=== PATIENT | male | born 1970 | race American Indian/Alaskan Native ===

== ENCOUNTER 2016-11-26 02:07 | Emergency (ER) | payer MEDICARE ==
[2016-11-26] MEDS ORDERED: TYLENOL ONE (02:19)
[2016-11-26] MEDS ORDERED: TYLENOL PO ONE ×2 (02:27→02:45)
--- NOTE | 2016-11-26 05:00 | Ultrasound Report ---
FINAL REPORT PROCEDURE: US TESTICULAR DOPPLER COMP TECHNIQUE: Real-time batista-scale and color flow Doppler sonography in multiple planes of the scrotum, testicles, and epididymes was performed. Velocity spectral waveform analysis Doppler imaging of the arterial inflow and venous outflow of the testicles was performed with image documentation. CPT 73824 and 88168 HISTORY: left testicle pain COMPARISON: No prior studies are available for comparison. FINDINGS: RIGHT TESTICLE: Size: 3.8 x 1.6 x 1.9 cm . Appearance: Normal size and echotexture . Arterial blood flow: Normal spectral waveforms, flow velocities and color flow images.. Venous blood flow: Normal spectral waveforms and color flow images. Right epididymis: Normal size and echotexture . Hydrocele: Moderate. There is an extratesticular mass is measuring 5.3 x 2.3 x 2.1 centimeters suggesting inguinal hernia. LEFT TESTICLE Size: 3.8 x 2.1 x 2.7 cm . Appearance: Normal size and echotexture . Arterial blood flow: Normal spectral waveforms, flow velocities and color flow images.. Venous blood flow: Normal spectral waveforms and color flow images. Left epididymis: Normal size and echotexture . Hydrocele: Moderate. There is an extratesticular mass measuring 5.9 x 2.9 x 2.1 centimeters suggesting inguinal hernia. IMPRESSION: Suspected bilateral inguinal hernias containing bowel. CT recommended for further evaluation. Bilateral hydroceles. There is no testicular mass, orchitis or torsion.
[2016-11-26 05:10] LABS: Bilirubin,Urine NEG (Negative); Blood,Urine NEG (Negative); Ketones,Urine TR mg/dL (Negative); Leukocyte Esterase,Urine MOD (Negative); Mucus,Urine 3+ /HPF; Nitrite,Urine NEG (Negative); Protein,Urine <15 mg/dL mg/dL (Negative); Urobilinogen,Urine < 2.0 mg/dL (<2.0)
[2016-11-26 08:24] LABS: Basophils % (Auto) 0.3 % (0.0-1.8); Eosinophils % (Auto) 0.4 % (0.0-4.3); Hematocrit 42.5 % (35.5-45.6); Hemoglobin 14.2 gm/dl (11.8-15.2); Mean Corpuscular HGB Conc 33 % (32-34); Mean Corpuscular Hemoglobin 31 pg (28-32); Mean Corpuscular Volume 93 fl (84-94); Red Blood Count 4.57 M/mm3 (3.65-5.03); White Blood Count 11.4 K/mm3 (4.5-11.0)
[2016-11-26 08:27] LABS: Platelet Count 282 K/mm3 (140-440)
[2016-11-26 08:43] VITALS: BP 131/71
[2016-11-26] MEDS ORDERED: NACL ONE (08:43)
[2016-11-26 08:48] LABS: Alanine Aminotransferase 31 units/L (7-56); Albumin 3.6 g/dL (3.9-5); Albumin/Globulin Ratio 0.9 %; Alkaline Phosphatase 81 units/L (35-129); Anion Gap 19 mmol/L; BUN/Creatinine Ratio 18.75; Bilirubin,Total 0.5 mg/dL (0.1-1.2); Blood Urea Nitrogen 15 mg/dL (9-20); Calcium 9.3 mg/dL (8.4-10.2); Carbon Dioxide 26 mmol/L (22-30); Chloride 97.6 mmol/L (98-107); Glucose 103 mg/dL (75-100); Potassium 3.5 mmol/L (3.6-5.0); Sodium 139 mmol/L (137-145); Total Protein 7.8 g/dL (6.3-8.2)
--- NOTE | 2016-11-26 08:59 | Emergency Department Report ---
HPI - General Chief Complaint: Urogenital-Male Time Seen by Provider: 11/26/16 08:49 - HPI HPI: Chief complaint: Swollen testicles left greater than right HPI: Patient complains of swollen testicle 2 days to me and 5 days to the nursing staff. Patient has a history of urinary retention in the past and states he saw urologist José Miguel. Patient states she's never been told he had an inguinal hernia. Patient denies nausea vomiting or constipation. Last bowel movement was prior to arrival here. When asked if he had any penile discharge patient states "I don't know ". No fever. Review of old chart shows that 1 patient was here before there was difficulty passing a catheter and a coud catheter was used. Patient had a large blood clot that was dislodged by the coud catheter and after that did not require an indwelling [place]. Patient states he was followed up by urologist José Miguel who checked his prostate but is unclear of the final diagnosis. Patient is HIV positive on antiretrovirals. Mode of arrival: private car Source: Patient old chart Began: 2 days Duration: 2 days Context: See above Quality: Pressure Severity: 5 out of 10 Improved with: Nothing Worsened with: Palpation Associated signs and symptoms: See above ED Past Medical Hx - Past Medical History Previous Medical History?: Yes Hx Diabetes: Yes Hx HIV: Yes - Surgical History Past Surgical History?: Yes Additional Surgical History: L Hip surgery THR - Social History Smoking Status: Never Smoker Substance Use Type: None - Medications Home Medications: Home Medications Medication Instructions Recorded Confirmed Last Taken Type Ritonavir [Norvir] 1 tab PO DAILY 08/26/13 11/26/16 08/26/13 History HYDROcodone/APAP 5-325 [[place] 1 each PO Q6HR PRN #14 tablet 11/26/16 Unknown Rx 5/325] Levofloxacin [Levaquin TAB] 500 mg PO QDAY #10 tablet 11/26/16 Unknown Rx metFORMIN [Glucophage] 500 mg PO BID 11/26/16 11/26/16 Unknown History ED Review of Systems ROS: Stated complaint: GROIN PAIN/SWOLLEN Other details as noted in HPI ROS Constitutional: No fever ENT: No uri symptoms Cardiovascular: No chest pain Respiratory: No sob or cough GI: No nausea vomiting or diarrhea : No dysuria frequency or urgency, Skin: No rash Neuro: No focal weakness or numbness Psych: No depression Nic/lymph: No edema Physical Exam - Physical Exam Vital Signs: Vital Signs 11/26/16 11/26/16 11/26/16 02:08 08:19 08:43 Temperature 97.9 F Pulse Rate 86 61 Respiratory 18 16 18 Rate Blood Pressure 142/91 131/71 [Right] O2 Sat by Pulse 99 100 Oximetry Physical Exam: GENERAL: The patient is well-developed well-nourished . HEENT: Normocephalic. Atraumatic. Extraocular motions are intact. Patient has moist mucous membranes. NECK: Supple. No meningitic signs are noted. There is no adenopathy noted. CHEST/LUNGS: Clear to auscultation. There is no respiratory distress noted. HEART/CARDIOVASCULAR: Regular. There is no tachycardia. There is no gallop rub or murmur. ABDOMEN: Abdomen is soft, nontender. Patient has normal bowel sounds. There is no abdominal distention. SKIN: There is no rash. There is no edema. There is no diaphoresis. : Swollen tender testicles. No penile discharge or lesions. Circumcised NEURO: The patient is awake, alert, and oriented. The patient is cooperative. The patient has no focal neurologic deficits. The patient has normal speech. MUSCULOSKELETAL: There is no tenderness or deformity. There is no limitation range of motion. There is no evidence of acute injury. ED Course Vital Signs 11/26/16 11/26/16 11/26/16 02:08 08:19 08:43 Temperature 97.9 F Pulse Rate 86 61 Respiratory 18 16 18 Rate Blood Pressure 142/91 131/71 [Right] O2 Sat by Pulse 99 100 Oximetry ED Medical Decision Making - Lab Data Result diagrams: 11/26/16 08:06 11/26/16 08:06 Laboratory Tests 11/26/16 04:15 Ur Specific [place] 1.028 Urine Protein <15 mg/dl Urine Ketones Tr Urine Nitrite Neg Ur Leukocyte Esterase Mod Urine WBC (Auto) 67.0 H Urine RBC (Auto) 5.0 - Radiology Data Radiology results: report reviewed (testicular ultrasound shows normal testicles and scrotum but questionable bilateral hernias. Recommend CAT scan. Discussed with the radiologist after CAT scan. No hernias. Review of ultrasound by Dr. Price showed no evidence of hernia. Instead he feels that it represents bilateral epididymitis.) Critical care attestation.: If time is entered above; I have spent that time in minutes in the direct care of this critically ill patient, excluding procedure time. ED Disposition Clinical Impression: Epididymitis Disposition: DISCHARGED TO HOME OR SELFCARE Is pt being admited?: No Does the pt Need Aspirin: No Instructions: Epididymitis (ED) Additional Instructions: Take ibuprofen [id number] 600 mg every 8 hours with the when necessary pain. You have been given a narcotic pain medicine to take if the ibuprofen is insufficient. Prescriptions: HYDROcodone/APAP 5-325 [[place] 5/325] 1 each PO Q6HR PRN #14 tablet PRN Reason: Pain Levofloxacin [Levaquin TAB] 500 mg PO QDAY #10 tablet Referrals: PRIMARY CAREMD [Primary Care Provider] - 3-5 Days MAME CARTER MD [Staff Physician] - 3-5 Days [facility] [Outside] - 3-5 Days (Follow-up with urology at [place].) Forms: STI Treatment and Prevention Time of Disposition: 09:55
[2016-11-26] MEDS ORDERED: LEVAQUIN PO ONE (09:39)
--- NOTE | 2016-11-26 09:43 | Cat Scan Report ---
CT SCAN OF THE ABDOMEN AND PELVIS WITH CONTRAST: HISTORY: Pelvic pain, testicular pain. TECHNIQUE: Helical CT in 1.25mm intervals following IV contrast. Sagittal and coronal reconstructions. FINDINGS: The ultrasound testicular performed earlier today was reviewed. In my opinion the ultrasound is consistent with bilateral epididymitis. There are bilateral hydroceles as well but no convincing scrotal abscess. The liver is normal in size and is without focal defect. No gallstones or biliary dilatation are noted. The spleen and pancreas demonstrate a normal size and attenuation with no evidence of abnormal mass. The kidneys are normal in size and position with no evidence of hydronephrosis or mass. The adrenal glands are normal. There is no intestinal obstruction or ascites. Normal appendix. The abdominal aorta is normal. No abnormalities are identified within the retroperitoneum or mesentery. There is no evidence of peritoneal air or fluid. There is no evidence of any abnormal masses or fluid collections within the pelvis. No adenopathy is identified. Mild diffuse bladder wall thickening is suspected. This could represent a cystitis. The scrotum is also included in this exam. There are moderate bilateral hydroceles. The epididymides appear edematous and demonstrate mild enhancement consistent with acute epididymitis. IMPRESSION: Findings suggestive of bilateral epididymitis. I believe the previous testicular ultrasound also demonstrates bilateral epididymitis. Mild bladder wall thickening suggesting a cystitis.
== END 2016-11-26 10:11 | disposition home or self-care (01) ==
LOC: ED 02:07
DX: N45.1 Epididymitis (principal); R10.2 Pelvic and perineal pain; E11.9 Type 2 diabetes mellitus without complications
CPT/HCPCS: 36415; 74177; 80053; 81001; 85025; 93975; 99284; Q9967